=== PATIENT | male | born 1945 | race Caucasian/White ===

== ENCOUNTER → 2017-03-11 | Outpatient (CLI) | payer MEDICARE, OTHER ==
[2017-03-11 17:58] LABS: HEMOGLOBIN 15.7 g/dL (13.7-18.0)
[2017-03-11 18:10] LABS: BLOOD UREA NITROGEN 14 mg/dL (7-18); C-REACTIVE PROTEIN, QUANT 0.19 mg/dL (0.02-0.49)
[2017-03-11 18:23] LABS: ANISOCYTOSIS 2+; MICROCYTOSIS 1+
[2017-03-11 18:36] LABS: ASPARTATE AMINO TRANSFERASE 13 U/L (15-37); TOTAL IRON BINDING CAPACITY 403 mcg/dL (250-450); TRANSFERRIN 307 mg/dL (200-360)
== END | disposition home or self-care (01) ==
LOC: LAB 17:22
PROVIDERS: ATTEND Nurse Practitioner Primary Care
DX: I10 Essential (primary) hypertension (principal); E03.9 Hypothyroidism, unspecified; E21.3 Hyperparathyroidism, unspecified; K21.9 Gastro-esophageal reflux disease without esophagitis; D50.9 Iron deficiency anemia, unspecified; R01.1 Cardiac murmur, unspecified; R76.9 Abnormal immunological finding in serum, unspecified; R53.83 Other fatigue; R79.9 Abnormal finding of blood chemistry, unspecified
CPT/HCPCS: 36415; 80053; 82607; 82728; 82746; 82784; 82785; 83540; 83550; 84207; 84425; 84443; 84466; 85025; 85651; 86140; 86225; 86235; 86480; 86592

== ENCOUNTER → 2017-07-01 | Outpatient (CLI) | payer MEDICARE, OTHER | END | disposition home or self-care (01) | LOC: LAB 12:55 | PROVIDERS: ATTEND Nurse Practitioner Primary Care | DX: E03.9 Hypothyroidism, unspecified (principal); R76.9 Abnormal immunological finding in serum, unspecified; E21.3 Hyperparathyroidism, unspecified; K21.9 Gastro-esophageal reflux disease without esophagitis; I10 Essential (primary) hypertension; D64.89 Other specified anemias; R01.1 Cardiac murmur, unspecified; R53.83 Other fatigue; R79.9 Abnormal finding of blood chemistry, unspecified | CPT/HCPCS: 36415; 82607; 82728; 82746; 83540; 83550; 84466 ==

== ENCOUNTER → 2017-12-02 | Outpatient (CLI) | payer MEDICARE ==
[2017-12-02 15:44] LABS: BASOPHILS # (AUTO) 0.05 x10^3/uL (0-0.1); BASOPHILS % (AUTO) 1 % (0-1); EOSINOPHILS # (AUTO) 0.15 x10^3/uL (0-0.4); EOSINOPHILS % (AUTO) 2 % (1-7); LYMPHOCYTES # (AUTO) 1.76 x10^3/uL (1-3.4); LYMPHOCYTES % (AUTO) 19 % (22-44); MD NO; MEAN CORPUSCULAR HEMOGLOBIN 30.1 pg (27.5-34.5); MEAN CORPUSCULAR HGB CONC 33.1 g/dL (33.2-36.2); MEAN CORPUSCULAR VOLUME 90.9 fL (81-97); MEAN PLATELET VOLUME 7.5 fL (7.4-10.4); MONOCYTES # (AUTO) 0.71 x10^3/uL (0.2-0.8); MONOCYTES % (AUTO) 8 % (2-9); NEUTROPHILS # (AUTO) 6.45 x10^3/uL (1.8-6.8); NEUTROPHILS % (AUTO) 71 % (42-75); PLATELET COUNT 351 x10^3/uL (130-400); RED CELL DISTRIBUTION WIDTH 12.8 % (9.4-14.8)
[2017-12-02 15:55] LABS: ALBUMIN 3.6 g/dL (3.4-5.0); ANION GAP 6 mmol/L (5-15); CALCIUM 8.4 mg/dL (8.5-10.1); CHLORIDE 107 mmol/L (98-107)
[2017-12-02 16:01] LABS: MICROSCOPIC AUTO
[2017-12-02 16:07] LABS: CULTURE INDICATED? YES
[2017-12-02 16:23] LABS: % IRON SATURATION 7 % (20-55); ALANINE AMINOTRANSFERASE 27 U/L (12-78); ALKALINE PHOSPHATASE 46 U/L (45-117); BILIRUBIN,TOTAL 1.5 mg/dL (0.2-1.0); CHOL/HDL RATIO 2.8; CHOLESTEROL, TOTAL 153 mg/dL (140-239); CREATININE 0.81 mg/dL (0.7-1.3); FOLATE LEVEL 10.5 ng/mL (3.1-17.5); HDL CHOL % 35 % (26-37); HDL CHOLESTEROL (DIRECT) 54 mg/dL (40-60); IRON LEVEL 33 mcg/dL (65-175); LDL CHOLESTEROL,CALCULATED 66 mg/dL (54-169); LDL/HDL RATIO 1.2 (0.5-3.0); TOTAL IRON BINDING CAPACITY 498 mcg/dL (250-450); TOTAL PROTEIN 7.2 g/dL (6.4-8.2); TRANSFERRIN 370 mg/dL (200-360); TRIGLYCERIDES 167 mg/dL (50-200); VLDL CHOLESTEROL 33 mg/dL (0-25)
== END | disposition home or self-care (01) ==
LOC: LAB 15:15
PROVIDERS: ATTEND Nurse Practitioner Primary Care
DX: E03.9 Hypothyroidism, unspecified (principal); R76.9 Abnormal immunological finding in serum, unspecified; E21.3 Hyperparathyroidism, unspecified; R53.83 Other fatigue; R79.9 Abnormal finding of blood chemistry, unspecified; E61.1 Iron deficiency; K21.9 Gastro-esophageal reflux disease without esophagitis; R01.1 Cardiac murmur, unspecified; I10 Essential (primary) hypertension; R79.89 Other specified abnormal findings of blood chemistry; W54.0XXD Bitten by dog, subsequent encounter
CPT/HCPCS: 36415; 80053; 80061; 81001; 82043; 82306; 82607; 82728; 82746; 83540; 83550; 84153; 84207; 84425; 84443; 84466; 85025; 87086

== ENCOUNTER → 2018-01-21 | Outpatient (CLI) | payer MEDICARE ==
[2018-01-21 10:00] LABS: BASOPHILS # (AUTO) 0.04 x10^3/uL (0-0.1); BASOPHILS % (AUTO) 1 % (0-1); EOSINOPHILS # (AUTO) 0.16 x10^3/uL (0-0.4); EOSINOPHILS % (AUTO) 2 % (1-7); LYMPHOCYTES # (AUTO) 1.34 x10^3/uL (1-3.4); LYMPHOCYTES % (AUTO) 18 % (22-44); MD NO; MEAN CORPUSCULAR HEMOGLOBIN 29.7 pg (27.5-34.5); MEAN CORPUSCULAR HGB CONC 33.3 g/dL (33.2-36.2); MEAN CORPUSCULAR VOLUME 89.2 fL (81-97); MEAN PLATELET VOLUME 8.1 fL (7.4-10.4); MONOCYTES # (AUTO) 0.79 x10^3/uL (0.2-0.8); MONOCYTES % (AUTO) 11 % (2-9); NEUTROPHILS # (AUTO) 5.01 x10^3/uL (1.8-6.8); NEUTROPHILS % (AUTO) 68 % (42-75); PLATELET COUNT 287 x10^3/uL (130-400); RED CELL DISTRIBUTION WIDTH 15.8 % (9.4-14.8)
== END ==
LOC: LAB 09:44
PROVIDERS: ATTEND Nurse Practitioner Primary Care
DX: I10 Essential (primary) hypertension (principal); K21.9 Gastro-esophageal reflux disease without esophagitis; E03.9 Hypothyroidism, unspecified; E78.2 Mixed hyperlipidemia; E21.3 Hyperparathyroidism, unspecified; R76.9 Abnormal immunological finding in serum, unspecified; R79.9 Abnormal finding of blood chemistry, unspecified; R01.1 Cardiac murmur, unspecified; R53.83 Other fatigue; E61.1 Iron deficiency
CPT/HCPCS: 36415; 82728; 83540; 83550; 84466; 85025

== ENCOUNTER 2018-02-26 09:30 | Emergency (ER) | payer MEDICARE ==
[~2018-02-26] VITALS: Ht 170.2 cm; Wt 76.2 kg
[2018-02-26] MEDS ORDERED: ASPIRIN 81 MG TABLET CHEW PO ONE (10:00)
[2018-02-26] MEDS ORDERED: FERR325T18 PO (10:12)
[2018-02-26] MEDS ORDERED: UBID100C41 PO (10:12)
[2018-02-26] MEDS ORDERED: LOVA40TA2 PO (10:12)
[2018-02-26] MEDS ORDERED: METO50TA82 PO (10:12)
[2018-02-26] MEDS ORDERED: OMEG1CAP23 PO (10:12)
[2018-02-26] MEDS ORDERED: LEVO50TA PO (10:12)
[2018-02-26] MEDS ORDERED: AMLO10TA2 PO (10:12)
[2018-02-26 10:20] LABS: BASOPHILS # (AUTO) 0.07 x10^3/uL (0-0.1); BASOPHILS % (AUTO) 1 % (0-1); EOSINOPHILS # (AUTO) 0.17 x10^3/uL (0-0.4); EOSINOPHILS % (AUTO) 2 % (1-7); LYMPHOCYTES # (AUTO) 1.18 x10^3/uL (1-3.4); LYMPHOCYTES % (AUTO) 12 % (22-44); MD NO; MEAN CORPUSCULAR HEMOGLOBIN 29.7 pg (27.5-34.5); MEAN CORPUSCULAR HGB CONC 33.3 g/dL (33.2-36.2); MEAN CORPUSCULAR VOLUME 89.1 fL (81-97); MONOCYTES # (AUTO) 0.85 x10^3/uL (0.2-0.8); MONOCYTES % (AUTO) 9 % (2-9); NEUTROPHILS # (AUTO) 7.46 x10^3/uL (1.8-6.8); NEUTROPHILS % (AUTO) 77 % (42-75); PLATELET COUNT 293 x10^3/uL (130-400); RED BLOOD COUNT 5.79 x10^6/uL (4.38-5.82); RED CELL DISTRIBUTION WIDTH 15.9 % (9.4-14.8)
[2018-02-26 10:33] LABS: ALANINE AMINOTRANSFERASE 25 U/L (12-78); ALBUMIN 3.7 g/dL (3.4-5.0); ANION GAP 10 mmol/L (5-15); CALCIUM 8.8 mg/dL (8.5-10.1); CHLORIDE 103 mmol/L (98-107); CREATININE 1.02 mg/dL (0.7-1.3)
[2018-02-26 10:37] LABS: ALKALINE PHOSPHATASE 57 U/L (45-117); BILIRUBIN,TOTAL 1.5 mg/dL (0.2-1.0); TOTAL PROTEIN 7.8 g/dL (6.4-8.2); TROPONIN I < 0.015 ng/mL (0.000-0.045)
[2018-02-26] MEDS ORDERED: OMNIPAQUE 350 MG/ML, 150 ML BOTTLE ONE (12:05)
[2018-02-26 12:36] LABS: MICROSCOPIC NOT IND
[2018-02-26 12:41] LABS: CULTURE INDICATED? NO
[2018-02-26 13:20] VITALS: BP 111/70
== END 2018-02-26 13:49 | disposition home or self-care (01) ==
LOC: ED 10:49
DX: K21.9 Gastro-esophageal reflux disease without esophagitis (principal); K44.9 Diaphragmatic hernia without obstruction or gangrene; M54.6 Pain in thoracic spine; F17.200 Nicotine dependence, unspecified, uncomplicated
CPT/HCPCS: 36415; 71275; 74022; 74174; 80053; 81003; 83690; 84484; 85025; 93005; 99285; Q9967

== ENCOUNTER → 2018-10-13 | Outpatient (CLI) | payer MEDICARE ==
[~2018-10-13] MED LIST: AMLO10TA6 PO; FERR325T18 PO; LEVO50TA PO; LOVA40TA2 PO; METO50TA82 PO; OMEG1CAP23 PO; UBID100C41 PO
[2018-10-13 09:43] LABS: BASOPHILS # (AUTO) 0.07 x10^3/uL (0-0.1); BASOPHILS % (AUTO) 1 % (0-1); EOSINOPHILS # (AUTO) 0.24 x10^3/uL (0-0.4); EOSINOPHILS % (AUTO) 3 % (1-7); LYMPHOCYTES # (AUTO) 1.35 x10^3/uL (1-3.4); LYMPHOCYTES % (AUTO) 16 % (22-44); MD NO; MEAN CORPUSCULAR HEMOGLOBIN 29.7 pg (27.5-34.5); MEAN CORPUSCULAR HGB CONC 33.3 g/dL (33.2-36.2); MEAN CORPUSCULAR VOLUME 89.1 fL (81-97); MEAN PLATELET VOLUME 8.1 fL (7.4-10.4); MONOCYTES # (AUTO) 0.73 x10^3/uL (0.2-0.8); MONOCYTES % (AUTO) 9 % (2-9); NEUTROPHILS # (AUTO) 5.92 x10^3/uL (1.8-6.8); NEUTROPHILS % (AUTO) 71 % (42-75); PLATELET COUNT 263 x10^3/uL (130-400); RED BLOOD COUNT 5.21 x10^6/uL (4.38-5.82); RED CELL DISTRIBUTION WIDTH 14.1 % (9.4-14.8)
[2018-10-13 09:54] LABS: ALBUMIN 3.4 g/dL (3.4-5.0); ANION GAP 6 mmol/L (5-15); CALCIUM 8.7 mg/dL (8.5-10.1); CHLORIDE 107 mmol/L (98-107); CHOLESTEROL, TOTAL 160 mg/dL (140-239); TRIGLYCERIDES 149 mg/dL (50-200); VLDL CHOLESTEROL 30 mg/dL (0-25)
[2018-10-13 10:20] LABS: % IRON SATURATION 10 % (20-55); ALANINE AMINOTRANSFERASE 20 U/L (12-78); ALKALINE PHOSPHATASE 52 U/L (45-117); BILIRUBIN,TOTAL 0.8 mg/dL (0.2-1.0); CREATININE 0.96 mg/dL (0.7-1.3); HDL CHOLESTEROL (DIRECT) 51 mg/dL (40-60); IRON LEVEL 41 mcg/dL (65-175); TOTAL IRON BINDING CAPACITY 402 mcg/dL (250-450); TOTAL PROTEIN 6.8 g/dL (6.4-8.2); TRANSFERRIN 331 mg/dL (200-360)
[2018-10-13 10:21] LABS: CHOL/HDL RATIO 3.1; FOLATE LEVEL 7.9 ng/mL (3.1-17.5); FREE T4 (FREE THYROXINE) 1.17 ng/dL (0.76-1.46); HDL CHOL % 32 % (26-37); LDL CHOLESTEROL,CALCULATED 79 mg/dL (54-169); LDL/HDL RATIO 1.5 (0.5-3.0)
[2018-10-13 10:33] LABS: HEMOGLOBIN A1C 6.2 % (4.2-6.3)
[2018-10-13 14:26] LABS: MICROSCOPIC NOT IND
[2018-10-13 14:36] LABS: CULTURE INDICATED? NO
== END | disposition home or self-care (01) ==
LOC: LAB 09:23
PROVIDERS: ATTEND Nurse Practitioner Primary Care
DX: E03.9 Hypothyroidism, unspecified (principal); E21.3 Hyperparathyroidism, unspecified; R76.9 Abnormal immunological finding in serum, unspecified; R53.83 Other fatigue; R79.9 Abnormal finding of blood chemistry, unspecified; E61.1 Iron deficiency; E78.2 Mixed hyperlipidemia; I10 Essential (primary) hypertension; R01.1 Cardiac murmur, unspecified; K21.9 Gastro-esophageal reflux disease without esophagitis; Z79.899 Other long term (current) drug therapy
CPT/HCPCS: 36415; 80053; 80061; 81003; 82043; 82306; 82607; 82728; 82746; 83036; 83540; 83550; 84207; 84425; 84439; 84443; 84466; 84480; 84481; 85025

== ENCOUNTER → 2019-06-03 | Outpatient (CLI) | payer OTHER ==
[~2019-06-03] MED LIST changes: -AMLO10TA6 PO; +AMLO10TA8 PO; +OMNIPAQUE 350 MG/ML, 150 ML BOTTLE ONE; +REGADENOSON 0.4 MG/5 ML SYRINGE ONE
[2019-06-03 12:12] LABS: CREATININE 1.13 mg/dL (0.7-1.3)
== END | disposition home or self-care (01) ==
LOC: CFH 08:15
PROVIDERS: ATTEND Internal Medicine
DX: I65.23 Occlusion and stenosis of bilateral carotid arteries (principal); I70.203 Unspecified atherosclerosis of native arteries of extremities, bilateral legs; I49.3 Ventricular premature depolarization; I71.01 Dissection of thoracic aorta; K44.9 Diaphragmatic hernia without obstruction or gangrene; K80.20 Calculus of gallbladder without cholecystitis without obstruction; N40.1 Benign prostatic hyperplasia with lower urinary tract symptoms; K40.20 Bilateral inguinal hernia, without obstruction or gangrene, not specified as recurrent; N32.89 Other specified disorders of bladder
CPT/HCPCS: 36415; 75635; 78452; 82565; 93017; 93880; A9502; J2785; Q9967